=== PATIENT | male | born 1985 | race African-American/Black ===

== ENCOUNTER 2021-01-22 11:34 | Emergency (ER) | payer OTHER, SELFPAY ==
[2021-01-22 11:44] VITALS: BP 139/82; PULSE 86; RESP 20; TEMP 37.1; O2SAT 99
--- NOTE | 2021-01-22 11:44 | ED.FEVER ---
HPI - Fever General Chief Complaint: Fever Stated Complaint: chills weak diarrhre headache Time Seen by Provider: 01/22/21 11:44 Source: patient and RN notes reviewed History of Present Illness HPI Narrative: Patient is a 35-year-old male who presents the urgent care with complaints of loose stools, headache, chills, fatigue, body aches. Patient states that it started last night. Denies of any known exposure to Covid, influenza or strep. Denies of any known fevers, cough, nasal drainage, sore throat or ear pain. Patient states he does have a history of strep throat. No other acute complaints. No acute distress noted. Patient aware of the plan of care. Some parts of this dictation were generated by voice recognition software and may contain typographical and/or grammatical inaccuracies. Related Data Home Medications Medication Instructions Recorded Confirmed No Home Medications 01/22/21 01/22/21 Allergies Allergy/AdvReac Type Severity Reaction Status Date / Time No Known Allergies Allergy Verified 01/22/21 11:50 Review of Systems Review of Systems: Narrative: CONSTITUTIONAL: Reports of chills and sweats EYES: Denies visual changes, redness, or discharge. ENT: Denies rhinorrhea, congestion, sore throat, or otalgia. CARDIOVASCULAR: Denies chest pain, palpitations, or edema. RESPIRATORY: Denies cough or dyspnea. GASTROINTESTINAL: Reports of loose stools without nausea, vomiting or abdominal pain GENITOURINARY: Denies dysuria or hematuria. SKIN: Denies rash or itching. MUSCULOSKELETAL: Denies back pain, joint pain. Reports of body aches NEUROLOGIC: Reports of headache All other systems reviewed are negative, except as documented in HPI. PMFSH Comments At the time of my signature, I reviewed and agree with the nursing past medical, surgical, social, and family history. There is no relevant family history pertinent to the patient complaint. Exam Narrative: Exam Narrative: GENERAL: This is a well-nourished, well-developed patient, in no apparent distress. Appears slightly fatigued HEAD: normocephalic, atraumatic. EYES: PERRL. Sclera clear/white. Vision is grossly intact. EARS: External ears normal, auditory canals clear and without drainage, TMs normal without perforation. Hearing grossly intact. NOSE: External nose normal with no obvious nasal discharge, nares without redness, no rhinorrhea. THROAT: Mucous membranes moist, posterior pharynx clear. Moderate postnasal drainage NECK: Neck supple, non-tender without lymphadenopathy CARDIOVASCULAR: Regular rate and rhythm without murmurs, gallops, or rubs. RESPIRATORY: Clear to auscultation. Breath sounds equal bilaterally. No wheezes, rales, or rhonchi. GASTROINTESTINAL: Abdomen soft, non-tender, nondistended. Bowel sounds are hyperactive. No guarding. SKIN: warm, intact with no suspicious lesions or rash, good texture and turgor. NEURO: awake, alert, and oriented to person, place and time. There were no obvious focal neurologic abnormalities. EXTREMITIES: No clubbing, cyanosis, or edema. Course Vital Signs Vital signs: Vital Signs Temperature 98.7 F 01/22/21 11:44 Pulse Rate 86 01/22/21 11:44 Respiratory Rate 20 01/22/21 11:44 Blood Pressure 139/82 01/22/21 11:44 Pulse Oximetry 99 01/22/21 11:44 Temperature 98.7 F 01/22/21 11:50 Pulse Rate 86 01/22/21 11:50 Respiratory Rate 20 01/22/21 11:50 Blood Pressure 139/82 01/22/21 11:50 Pulse Oximetry 99 01/22/21 11:50 Reviewed MDM - Fever MDM Narrative Medical decision making narrative: Reviewed lab results with the patient. He is aware that strep swab was negative. Based on his symptoms, suggested Covid PCR swab. PCR will result in approximately 24 to 48 hours. The facility will call you with results. If you do not hear back by tomorrow evening you may check on your results using the phone number listed on your paperwork. Treat your symptoms with [id number] medication suc
[2021-01-22 11:50] VITALS: BP 139/82; PULSE 86; RESP 20; TEMP 37.1; O2SAT 99
[2021-01-23 17:52] LABS: SARS-CoV-2 RNA PCR Positive
== END 2021-01-22 12:13 | disposition home or self-care (01) ==
PROVIDERS: Emergency Provider Nurse Practitioner Family
DX: U07.1 COVID-19 (principal); J45.909 Unspecified asthma, uncomplicated
CPT/HCPCS: 87081; 87880; 99213; C9803; G0463; U0003; U0005